=== PATIENT | male | born 1980 | race American Indian/Alaskan Native ===

== ENCOUNTER 2017-03-27 21:35 | Emergency (ER) | payer SELFPAY ==
[2017-03-27 22:06] VITALS: BP 121/83
--- NOTE | 2017-03-28 03:58 | Emergency Department Report ---
Chief Complaint: Extremity Injury, Lower Stated Complaint: BILATERAL LEG PAIN Time Seen by Provider: 03/28/17 03:44 - HPI History of Present Illness: This is a 36-year-old male nontoxic, well nourished in appearance, no acute signs of distress presents to the ED presents for food and rest. Patient that he walked intermittently for 2 months from [place] to [place] and is tired and has bilateral leg pain. Patient denies any trauma to the region. Patient in the ED states that his bilateral leg pain has been subsided and he just wants to get something to eat and rest for couple of hours because he is homeless. Patient denies any numbness, tickling, chest pain, shortness of breath, fever, chills, headache or nausea or vomiting. Patient that he does not have any spit physical symptoms and denies any complaints. Patient denies any allergies or past medical history. - ROS Review of Systems: GENERAL: The patient is a well-developed, well-nourished female in no apparent distress. Patient is alert and acting appropriately for age. Alert and oriented 3, no apparent distress, normal gait, atraumatic. HEENT: Head is normocephalic and atraumatic. PERRL, Extraocular muscles are intact. Pupils are equal, round, and reactive to light and accommodation. Nares appeared normal. Mouth is well hydrated and without lesions. Mucous membranes are moist. Posterior pharynx clear of any exudate or lesions. Mouth is well hydrated and without lesions. Tonsils not erythematous or swollen. Uvula midline. Tongue elevated. Mucous members are moist. Posterior pharynx clear, no exudate or lesions. Patent airways. NECK: Supple. No carotid bruits. No lymphadenopathy or thyromegaly.nontender. No meningitic signs are noted. LUNGS: Clear to auscultation. Non labor breathing. No intercostal retractions. Symmetrical with respiration, no wheezing, no rales, or crackles. HEART: Regular rate and rhythm without murmur, rubs or gallops. No reproducible. S1, S2 present, regular rate and rhythm without murmur, no rubs, no gallops. ABDOMEN: Soft, nontender, and nondistended. Positive bowel sounds. No hepatosplenomegaly was noted. No guarding or rebound tenderness, negative epigastric bruit. Negative psoas sign, negative packer sign, negative McBurneys sign EXTREMITIES: Without any cyanosis, clubbing, rash, lesions or edema. Peripheral pulses intact. Capillary refill less than 2 seconds. Full range of motion bilaterally. NEUROLOGIC: Cranial nerves II through XII are grossly intact. Alert and oriented x 3. Normal gait. Symmetrical strength and sensation. Reflexes 2+ throughout. Cerebellar testing normal. GCS score of 15. PSYCHIATRIC: Normal affect with no suicidal or homicidal ideations. - Exam Vital Signs: Vital Signs 03/27/17 03/27/17 22:03 22:06 Temperature 98.2 F 98.2 F Pulse Rate 89 86 Respiratory 18 18 Rate Blood Pressure 121/83 121/83 O2 Sat by Pulse 97 98 Oximetry MSE screening note: Focused history and physical exam performed. Due to findings the following was ordered: ED Disposition for MSE Clinical Impression: No active medical problems Disposition: DC-01 TO HOME OR SELFCARE Is pt being admited?: No Does the pt Need Aspirin: No Condition: Stable Referrals: PRIMARY MD GERARDO [Primary Care Provider] - 3-5 Days SAV MELARA MD [Staff Physician] - 3-5 Days [facility] [Outside] - 3-5 Days [facility] [Outside] - 3-5 Days
== END 2017-03-28 06:58 | disposition home or self-care (01) ==
LOC: ED 21:35
DX: M79.604 Pain in right leg (principal); M79.605 Pain in left leg
CPT/HCPCS: 99283